=== PATIENT | female | born 1975 | race Caucasian/White ===

== ENCOUNTER 2019-01-04 01:49 | Emergency (ER) | payer OTHER, MEDICAID, SELFPAY ==
[2019-01-04 01:57] VITALS: BP 118/80; PULSE 88; RESP 18; TEMP 36.9; O2SAT 97
[2019-01-04] MEDS: DOXYCYCLINE HYCLATE 100 MG TABLET PO (02:01)
[2019-01-04] MEDS: KETOROLAC 60 MG/2 ML VIAL IM (02:25)
--- NOTE | 2019-01-04 02:29 | ED_ITS ---
HPI - Skin/Abscess/Foreign Bdy General Chief complaint: Skin/Abscess/Foreign Body Stated complaint: Infection on both sides of temples Time Seen by Provider: 01/04/19 01:56 Source: patient Mode of arrival: ambulatory Limitations: no limitations History of Present Illness HPI narrative: 43-year-old female, former smoker with very little medical problems, currently homeless and living out of her car presents to the emergency department with a few days of worsening swelling, redness and pain on her bilateral temples. She states she has never had any skin infections before and denies any IV drug use. She states that her symptoms seem to rapidly worsened after she used some baby powder in her hair which she did because she cannot get access to a shower. She denies any spontaneous drainage, she admits to sign ificant pain and tenderness. MD complaint: abscess/boil Onset (ago): day(s) Tetanus up to date: yes Location: face Severity: moderate Quality: burning and stabbing Pain Consistency: constant Relieving factors: none Exacerbating factors: none Context: none Associated symptoms: denies other symptoms Treatments prior to arrival: none Related Data Previous Rx's Medication Instructions Recorded doxycycline hyclate 100 mg PO BID #20 tab 01/04/19 Allergies Allergy/AdvReac Type Severity Reaction Status Date / Time amoxicillin Allergy Unknown Verified 01/04/19 02:03 acetaminophen [From Vicodin] Allergy Verified 01/04/19 02:03 hydrocodone [From Vicodin] Allergy Verified 01/04/19 02:03 Review of Systems Constitutional Denies chills, Denies fever(s), Denies lethargy and Denies weakness Eyes Denies change in vision, Denies eye discharge, Denies irritation and Denies loss of vision ENT Ears, Nose, Mouth, and Throat: Denies change in voice, Denies neck pain and Denies sore throat Cardiovascular Denies chest pain, Denies irregular heart rhythm, Denies lightheadedness, Denies palpitations, Denies dyspnea, Denies dyspnea on exertion and Denies orthopnea Respiratory Denies cough, Denies dyspnea, Denies dyspnea on exertion and Denies wheezing Gastrointestinal Gastrointestinal: Denies abdominal pain, Denies change in bowel habits, Denies diarrhea, Denies nausea and Denies vomiting Genitourinary Denies hematuria, Denies flank pain, Denies urinary incontinence and Denies urinary urgency Musculoskeletal Denies neck pain Integumentary/Breasts Denies pruritus, Denies erythema, Denies rash, Reports skin pain, Reports skin swelling and Denies wounds Neurologic Denies confusion, Denies loss of vision and Denies weakness Psychiatric Denies anxiety, Denies confusion, Denies depression, Denies homicidal ideation and Denies suicidal ideation Endocrine Denies palpitations Hematologic/Lymphatic Denies easy bruising Allergic/Immunologic Denies wheezing PFSH Social History Smoking Status: Current every day smoker Social History Smoking Status: Current every day smoker Exam Narrative Exam Narrative: GENERAL: 43-year-old female appears stated age, obviously uncomfortable and a bit unkempt HEAD: Atraumatic. Normocephalic. Bilateral temporal regions have 2-3 cm of induration, redness and obvious tenderness. The left side has a small amount of fluctuance consistent with a small abscess. EYES: Pupils equal round and reactive. Extraocular motions intact. No scleral icterus. No injection or drainage. ENT: Nose without bleeding, purulent drainage or septal hematoma. Throat without erythema, tonsillar hypertrophy or exudate. Uvula midline. Airway patent. NECK: Trachea midline. No JVD or lymphadenopathy. Supple, nontender, no meningeal signs. CARDIOVASCULAR: Regular rate and rhythm without murmurs, gallops, or rubs. RESPIRATORY: Clear to auscultation. Breath sounds equal bilaterally. No wheezes, rales, or rhonchi. GASTROINTESTINAL: Abdomen soft, non-tender, nondistended. No hepato- splenomegaly, or palpable masses. No guarding. EXTREMITIES: No clubbing, cyanosis, or edema. No joint tenderness, effusion, or edema noted. BACK: Nontender without deformity or crepitance. No flank tenderness. NEURO: AOx3. SKIN: No rash or erythema. Initial Vital Signs Initial Vital Signs: Vital Signs Temperature 98.5 F 01/04/19 01:57 Pulse Rate 88 01/04/19 01:57 Respiratory Rate 18 01/04/19 01:57 Blood Pressure 118/80 01/04/19 01:57 Pulse Oximetry 97 01/04/19 01:57 Procedures Abscess I/D Site: face Side (if applicable): left Local Anesthetic: lidocaine 1% Amount of anesthesia used (mL): 3 Technique: incised with #11 blade Amount of fluid expressed (mL): 2 Irrigation: No Packing used?: none Complications: pain and bleeding Course Orders Ordered: ED Orders 01/04/19 02:20 Wound Culture and Gram Stain Routine Discontinued Medications Doxycycline Hyclate (Vibramycin) 100 mg PO NOW ONE Stop: 01/04/19 01:57 Last Admin: 01/04/19 02:01 Dose: 100 mg Ketorolac Tromethamine (Toradol) 60 mg IM NOW ONE Stop: 01/04/19 02:23 Last Admin: 01/04/19 02:25 Dose: 60 mg Reevaluation(s) Reevaluation #1: Wound culture obtained and sent for evaluation Vital Signs - 8 hr 01/04/19 01:57 01/04/19 02:51 Temperature 98.5 F Pulse Rate 88 84 Respiratory Rate 18 18 Blood Pressure 118/80 113/74 Pulse Oximetry 97 98 Discharge Plan Departure Patient Disposition: Home Clinical Impression: Cellulitis and abscess of face, Folliculitis Discharge Date/Time: 01/04/19 02:52 Interventions: ED Discharge Assessment Last Done: 01/04/19 02:51 Instructions: DI for Cellulitis -- Adult, DI for Skin Abscess, DI for Folliculitis Activity Restrictions/Additional Instructions: *You have been diagnosed with [ acute facial cellulitis with abscess and folliculitis ] *What to do: *Take medications as directed *Follow up with your primary care provider in 2-3 days, call for an appointment. Let them know you were seen in the Emergency Department and that we ask that you be seen in follow up *Return to ER if you should have any new, worsening or concerning symptoms Prescriptions: New doxycycline hyclate 100 mg tablet 100 mg PO BID Qty: 20 RF: 0
[2019-01-04 02:51] VITALS: BP 113/74; PULSE 84; RESP 18; O2SAT 98
== END 2019-01-04 02:52 | disposition home or self-care (01) ==
PROVIDERS: Emergency Provider Emergency Medicine
DX: L03.211 Cellulitis of face (principal); L02.01 Cutaneous abscess of face; L73.9 Follicular disorder, unspecified
CPT/HCPCS: 10060; 87070; 87075; 87077; 87147; 87186; 87205; 96372; 99282; 99283; J1885

== ENCOUNTER 2019-03-24 03:23 | Emergency (ER) | payer OTHER, MEDICAID, SELFPAY ==
[2019-03-24 03:32] VITALS: BP 130/88; PULSE 79; RESP 18; TEMP 37.5; O2SAT 100; BMI 24.3
[2019-03-24] MEDS: diphenhydrAMINE 25 MG TABLET 50 MG PO (03:37)
--- NOTE | 2019-03-24 05:31 | ED_ITS ---
HPI - Allergic Reaction General Chief complaint: Allergic Reaction Stated complaint: swelling left eye, rash Time Seen by Provider: 03/24/19 05:14 Source: patient Mode of arrival: ambulatory Limitations: no limitations History of Present Illness HPI narrative: Patient is a 43-year-old female who presents with swelling over her right temporal area. She said she used dry shampoo and started having swelling. She also appears to have some abrasion and redness a no hives no itching. This has happened to her before when she use baby powder. There was an I&D at that time. MD complaint: allergic reaction and facial swelling Previous Allergic Reaction History: none Related Data Previous Rx's Medication Instructions Recorded doxycycline hyclate 100 mg PO BID #20 tab 01/04/19 doxycycline hyclate 100 mg PO BID #14 cap 03/24/19 prednisone 20 mg PO DAILY #8 tab 03/24/19 Allergies Allergy/AdvReac Type Severity Reaction Status Date / Time amoxicillin Allergy Unknown Verified 01/04/19 02:03 hydrocodone [From Vicodin] Allergy Verified 01/04/19 02:03 duloxetine [From Cymbalta] AdvReac Vomiting Verified 03/24/19 03:31 oxycodone [From Percocet] AdvReac Vomiting Verified 03/24/19 03:31 Review of Systems Review of Systems ROS Unobtainable: All systems reviewed & are unremarkable except as noted in HPI and below Constitutional Denies chills, Denies fever(s), Denies lethargy and Denies weakness Eyes Denies change in vision, Denies eye discharge, Denies irritation and Denies loss of vision Cardiovascular Denies chest pain, Denies irregular heart rhythm, Denies lightheadedness, Denies palpitations and Denies orthopnea Integumentary/Breasts Reports erythema and Reports skin swelling Neurologic Denies loss of vision and Denies weakness Endocrine Denies palpitations [facility] Social History Smoking Status: Current every day smoker Exam Initial Vital Signs Initial Vital Signs: Vital Signs Temperature 99.5 F 03/24/19 03:32 Pulse Rate 79 03/24/19 03:32 Respiratory Rate 18 03/24/19 03:32 Blood Pressure 130/88 03/24/19 03:32 Pulse Oximetry 100 03/24/19 03:32 GENERAL: Well-appearing, well-nourished and in no acute distress. HEAD: Patient does actually have some significant swelling over the left temporal area. It is nontender to touch. There is an area of erythema but the entire area of swelling is not erythematous no streaking. CARDIOVASCULAR: peripheral pulses in tact, cap refill <2 sec RESPIRATORY: No respiratory distress, speaks in full sentences without difficulty EXTREMITIES: Normal range of motion, no clubbing or edema. Neurovascularly intact NEUROLOGICAL: Cranial nerves II through XII grossly intact. Normal gait and speech. SKIN: Warm, dry, no petechiae, no rashes or lesions. no fluctuation no induration. She has multiples skin sores all over her neck Course Orders Ordered: Discontinued Medications Diphenhydramine HCl (Benadryl) 50 mg PO NOW ONE Stop: 03/24/19 03:32 Last Admin: 03/24/19 03:37 Dose: 50 mg Doxycycline Hyclate (Vibramycin) 100 mg PO NOW ONE Stop: 03/24/19 05:32 Last Admin: 03/24/19 05:39 Dose: 100 mg Prednisone (Deltasone) 40 mg PO NOW ONE Stop: 03/24/19 05:32 Last Admin: 03/24/19 05:39 Dose: 40 mg Ranitidine HCl (Zantac) 150 mg PO NOW ONE Stop: 03/24/19 03:33 Last Admin: 03/24/19 03:38 Dose: 150 mg Vital Signs - 8 hr 03/24/19 03:32 03/24/19 05:53 Temperature 99.5 F Pulse Rate 79 79 Respiratory Rate 18 14 Blood Pressure 130/88 120/80 Pulse Oximetry 100 99 MDM - Allergic Reaction Lab Data Point of Care Testing Rapid Strep A Negative MDM Narrative Medical decision making narrative: There is obvious swelling on the left temporal side with 1 healing wound. I do not believe this whole swelling to be abscess or infection. However I will put her on some antibiotic she has multiple wounds. She is also given some prednisone. Discharge Plan Departure Patient Disposition: Home Clinical Impression: Allergic reaction Qualifiers: Encounter type: initial encounter Qualified Code(s): T78.40XA - Allergy, unspecified, initial encounter Cellulitis Qualifiers: Site of cellulitis: face Qualified Code(s): L03.211 - Cellulitis of face Discharge Date/Time: 03/24/19 05:53 Interventions: ED Discharge Assessment Last Done: 03/24/19 05:53 Instructions: DI for Cellulitis -- Adult, DI for General Allergic Reactions Activity Restrictions/Additional Instructions: *You have been diagnosed with allergic reaction, cellulitis *What to do: Do not use dry shampoo *Continue to take medications as directed Prednisone 40 mg once a day for 4 days Doxycycline 100 mg twice a day for 7 days *Follow up with your primary care provider in 2-3 days *Return to ER if you should have increasing redness, increasing swelling, fever or any new, worsening or concerning symptoms Prescriptions: New doxycycline hyclate 100 mg capsule 100 mg PO BID Qty: 14 RF: 0 prednisone 20 mg tablet 20 mg PO DAILY Qty: 8 RF: 0 No Action doxycycline hyclate 100 mg tablet 100 mg PO BID Qty: 20 RF: 0
[2019-03-24] MEDS: DOXYCYCLINE HYCLATE 100 MG TABLET PO (05:39)
[2019-03-24] MEDS: predniSONE 20 MG TABLET 40 MG PO (05:39)
[2019-03-24 05:53] VITALS: BP 120/80; PULSE 79; RESP 14; O2SAT 99
== END 2019-03-24 05:53 | disposition home or self-care (01) ==
PROVIDERS: Emergency Provider Emergency Medicine
DX: T78.40XA Allergy, unspecified, initial encounter (principal); L03.211 Cellulitis of face
CPT/HCPCS: 87880; 99282; 99283